=== PATIENT | male | born 1995 | race Caucasian/White ===

== ENCOUNTER 2019-03-03 03:48 | Emergency (ER) | payer OTHER ==
[~2019-03-03] VITALS: Ht 175.3 cm; Wt 74.8 kg
[~2019-03-03 03:48] MED LIST: AMOX250 PO; Amoxicillin500 MG PO; BENZ100A PO; CODACE30 PO; HYDACE5 PO; Norco 5-325 Ta1 EACH PO; OMEP20ER PO; SUMA25 PO
[2019-03-03] MEDS ORDERED: Augmentin 875-1 EACH PO (05:07)
== END 2019-03-03 05:24 | disposition home or self-care (01) ==
LOC: ER 03:48
DX: S51.831A Puncture wound without foreign body of right forearm, initial encounter (principal); K21.9 Gastro-esophageal reflux disease without esophagitis; F17.200 Nicotine dependence, unspecified, uncomplicated; W22.8XXA Striking against or struck by other objects, initial encounter
CPT/HCPCS: 73090; 90471; 90714; 99283-25